=== PATIENT | female | born 1995 | race African-American/Black ===

== ENCOUNTER 2017-09-29 18:52 | Emergency (ER) | payer BC ==
[2017-09-29 18:57] VITALS: BP 150/79
--- NOTE | 2017-09-29 21:43 | ER Document Report ---
ED General - General Chief Complaint: Sore Throat Stated Complaint: SORE THROAT Time Seen by Provider: 09/29/17 21:42 Information source: Patient TRAVEL OUTSIDE OF THE [place] IN LAST 30 DAYS: No - HPI Notes: 21-year-old female presents with sore throat x 18 hours ago. Pain 4/10, scratchy and constant. Tried salt water gargle without full relief. Denies fevers and chills. denies issues with swallowing food or eating foods. denies headache and fatigue. Denies hx of mono. Better with cold fluids, worse with eating hot foods. Denies any rashes. Was unable to see PCP today. has not tried any [id number] medications - Related Data Allergies/Adverse Reactions: No Known Allergies Allergy (Verified 09/29/17 18:54) Past Medical History - General Information source: Patient - Social History Smoking Status: Unknown if Ever Smoked Family History: None Patient has suicidal ideation: No Patient has homicidal ideation: No Renal/ Medical History: Denies: Hx Peritoneal Dialysis Review of Systems - Review of Systems Constitutional: No symptoms reported EENT: See HPI, Throat pain Cardiovascular: No symptoms reported Respiratory: No symptoms reported Gastrointestinal: No symptoms reported Genitourinary: No symptoms reported Female Genitourinary: No symptoms reported Musculoskeletal: No symptoms reported Skin: No symptoms reported Hematologic/Lymphatic: No symptoms reported Neurological/Psychological: No symptoms reported Physical Exam - Vital signs Vitals: Temp Pulse Resp BP Pulse Ox 98.9 F 106 H 16 150/79 H 100 09/29/17 18:56 09/29/17 18:56 09/29/17 18:56 09/29/17 18:56 09/29/17 18:56 Interpretation: Normal - Notes Notes: PHYSICAL EXAMINATION: GENERAL: Well-appearing, well-nourished and in no acute distress. HEAD: Atraumatic, normocephalic. EYES: Pupils equal round and reactive to light, extraocular movements intact, conjunctiva are normal. ENT: tympanic membranes are normal appearing with pearly color, normal- appearing landmarks and normal light reflex. Hearing is grossly intact. The nasal mucosa is moist. The septum is midline. There is no evidence of septal hematoma. The turbinates are without abnormality. No obvious abnormalities to the lips. The teeth are unremarkable. The gingivae are without any obvious evidence of infection. The oral mucosa is moist and pink. There are no obvious masses to the hard or soft palate. The uvula is midline. The salivary glands appear unremarkable. The tongue is midline. The posterior pharynx is without erythema or exudate. The tonsils are normal appearing. NECK: Normal range of motion, supple without lymphadenopathy LUNGS: Breath sounds clear to auscultation bilaterally and equal. No wheezes rales or rhonchi. HEART: Regular rate and rhythm without murmurs ABDOMEN: Soft, nontender, nondistended abdomen. No guarding, no rebound. No masses appreciated. Female : deferred Musculoskeletal: Normal range of motion, no pitting or edema. No cyanosis. NEUROLOGICAL: Cranial nerves grossly intact. Normal speech, normal gait. Normal sensory, motor exams PSYCH: Normal mood, normal affect. SKIN: Warm, Dry, normal turgor, no rashes or lesions noted. Course - Re-evaluation Re-evalutation: Rechecked the patient who is resting comfortably. On re-exam, patient is symptomatically improved. Discussed the results of the labs, rapid strep was negative, as well as the diagnosis at great length. Discussed the need to return to the ER for any new or worsening sx. All questions answered. Patient comfortable with the decision to go home. 09/29/17 22:36 09/29/17 22:37 - Vital Signs Vital signs: Temp Pulse Resp BP Pulse Ox 98.9 F 106 H 16 150/79 H 100 09/29/17 18:56 09/29/17 18:56 09/29/17 18:56 09/29/17 18:56 09/29/17 18:56 Discharge - Discharge Clinical Impression: Sore throat (viral) Clinical Impression: (Ruled Out): Pharyngitis Condition: Good Disposition: HOME, SELF-CARE Instructions: Sore Throat ([facility]) Additional Instructions: Water gargles. Take ibuprofen and Tylenol as needed for any fevers or pain. Follow up with primary care provider within 3 or 4 days. Return to the emergency room with signs and symptoms become worse. Patient verbalized understanding of these instructions and agree with plan of care. Patient was discharged home.
== END 2017-09-30 00:30 | disposition home or self-care (01) ==
LOC: EDSEX → ER 18:52
DX: J02.9 Acute pharyngitis, unspecified (principal)
CPT/HCPCS: 87070; 87880; 99283

== ENCOUNTER 2017-10-17 09:34 | Emergency (ER) | payer BC ==
--- NOTE | 2017-10-17 09:54 | ER Document Report ---
HPI - HPI Patient complains to provider of: Sore throat Onset: Other - 4 days Onset/Duration: Gradual Pain Level: 5 Context: 21-year-old female with severe sore throat, odynophagia, body aches. No abdominal pain. No cough. No chest pain or shortness of breath. No rash. Associated Symptoms: None Exacerbated by: Denies Relieved by: Denies - ROS ROS below otherwise negative: Yes Systems Reviewed and Negative: Yes All other systems reviewed and negative - REPRODUCTIVE LMP: End august Past Medical History - General Information source: Patient - Social History Smoking Status: Never Smoker Frequency of alcohol use: None Drug Abuse: None Lives with: Family Family History: None - Medical History Medical History: Negative Notes: Obesity Renal/ Medical History: Denies: Hx Peritoneal Dialysis Surgical Hx: Negative Vertical Provider Document - CONSTITUTIONAL Agree With Documented VS: Yes Exam Limitations: No Limitations General Appearance: No Apparent Distress - INFECTION CONTROL TRAVEL OUTSIDE OF THE [place] IN LAST 30 DAYS: No - HEENT HEENT: Normocephalic, Pharyngeal Exudate - Large exudative tonsils, uvula midline, no peritonsillar abscess. negative: Conjuctival Injection, Tympanic Membrane Red - NECK Neck: Supple, Lymphadenopathy-Left - Anterior, Lymphadenopathy-Right - Anterior - RESPIRATORY Respiratory: Breath Sounds Normal, No Respiratory Distress - CARDIOVASCULAR Cardiovascular: Regular Rate, Regular Rhythm - GI/ABDOMEN Gastrointestinal: Abdomen Soft, Abdomen Non-Tender - MUSCULOSKELETAL/EXTREMETIES Musculoskeletal/Extremeties: MAEW, FROM - NEURO Level of Consciousness: Awake, Alert, Appropriate - DERM Integumentary: Warm, Dry, No Rash Course - Re-evaluation Re-evalutation: 10/17/17 pt feels better after meds and IV fluid. Discharge - Discharge Clinical Impression: Exudative tonsillitis Condition: Good Disposition: HOME, SELF-CARE Instructions: Acetaminophen, Clindamycin ([facility]), Corticosteroid Medication ([facility]) , Tonsillitis ([facility]) Additional Instructions: recheck in 48 hours to er sooner if worse plenty of fluids finish the antibiotics even if you feel better Prescriptions: Clindamycin HCl [Cleocin 150 mg Capsule] 300 mg PO QID #56 capsule Prednisone [Deltasone 10 mg Tablet] 10 mg PO ASDIR PRN #21 tablet PRN Reason: Forms: Return to Work
[2017-10-17] MEDS ORDERED: KETOROLAC TROMETHAMINE INJ/PF 30 MG/1 ML SDV IV ONE (10:11)
[2017-10-17] MEDS ORDERED: METHYLPREDNISOLONE INJ 125 MG/2 ML SDV IV ONE (10:11)
[2017-10-17] MEDS ORDERED: DEXAMETHASONE SOD PHOS INJ 10 MG/1 ML VIAL PO ONE (10:12)
[2017-10-17] MEDS ORDERED: CLINDAMYCIN 600 MG/D5W RTU 600 MG/50 ML RTUPB IV ONE (11:00)
[2017-10-17] MEDS ORDERED: NORMAL SALINE 1000 ML 1,000 ML IV ONE (11:24)
[2017-10-17 12:23] VITALS: BP 144/91
== END 2017-10-17 12:24 | disposition home or self-care (01) ==
LOC: ER 09:34
DX: J03.90 Acute tonsillitis, unspecified (principal); R13.10 Dysphagia, unspecified; M79.1 Myalgia
CPT/HCPCS: 99282; 96361; 96374; J1885; J7030; J1100